=== PATIENT | male | born 1980 | race Caucasian/White ===

== ENCOUNTER 2020-09-17 11:28 | Emergency (ER) | payer OTHER ==
[~2020-09-17 11:28] MED LIST: AMLODIPINE BESYL5 MG PO; BASAGLAR K100 UNIT/1 SC; CATAPRES 0.1MG0.1 MG PO; FLORANEX GRANU1 EACH PO; GLIPIZIDE5 MG PO; GLUCOPHAGE850 MG PO; HUMALOG 10100 UNITS/ SC; INVANZ 1 GM VIAL1 GM IV; INVANZ1 GM IV; KEPPRA1000 MG PO; LANTUS INS100 UTS/M1 SQ; LEVEMIR100 UNIT/1 SQ; LEVOFLOXACIN500 MG PO; LIPITOR40 MG PO; METOPROLOL TART50 MG PO; NOVOLIN 70100 UNITS/ SC; NOVOLOG 10100 UNITS2 SQ; PROTONIX 40 MG40 M1 PO; SPORANOX100 MG PO
[2020-09-17 12:32] LABS: HEMOGLOBIN 14.3 gm/dl (14.0-17.5); RED BLOOD COUNT 4.76 M/UL (4.20-5.50); WHITE BLOOD COUNT 9.2 K/UL (4.5-11.0)
[2020-09-17] MEDS ORDERED: ZOFRAN ODT 4 MG4 MG PO (16:21)
[2020-09-17] MEDS ORDERED: REGLAN10 MG PO (16:21)
[2020-10-20] MEDS ORDERED: PROTONIX40 MG PO (23:33)
[2020-10-20] MEDS ORDERED: REGLAN PO (23:34)
[2020-10-20] MEDS ORDERED: METOPROLOL (23:34)
[2020-10-20] MEDS ORDERED: GLIPIZIDE (23:35)
== END 2020-09-17 17:20 | disposition home or self-care (01) ==
LOC: ER1 11:28
PROVIDERS: Emergency Medicine
DX: K52.9 Noninfective gastroenteritis and colitis, unspecified (principal); E11.43 Type 2 diabetes mellitus with diabetic autonomic (poly)neuropathy; K31.84 Gastroparesis; N18.9 Chronic kidney disease, unspecified; E11.22 Type 2 diabetes mellitus with diabetic chronic kidney disease; F17.200 Nicotine dependence, unspecified, uncomplicated; Z90.89 Acquired absence of other organs; Z20.822 Contact with and (suspected) exposure to COVID-19
CPT/HCPCS: 0240U; 71045; 80053; 81001; 83605; 83690; 85025; 93005; 96374; 96375; 99284; J0360; J2405; J2765

== ENCOUNTER 2020-10-10 09:31 | Emergency (ER) | payer OTHER ==
[~2020-10-10 09:31] MED LIST changes: +REGLAN10 MG PO; +ZOFRAN ODT 4 MG4 MG PO
[2020-10-20] MEDS ORDERED: PROTONIX40 MG PO (23:33)
[2020-10-20] MEDS ORDERED: REGLAN PO (23:34)
[2020-10-20] MEDS ORDERED: GLIPIZIDE (23:35)
== END 2020-10-10 12:40 | disposition home or self-care (01) ==
LOC: ER1 09:31
DX: T81.31XA Disruption of external operation (surgical) wound, not elsewhere classified, initial encounter (principal); I12.9 Hypertensive chronic kidney disease with stage 1 through stage 4 chronic kidney disease, or unspecified chronic kidney disease; E11.22 Type 2 diabetes mellitus with diabetic chronic kidney disease; N18.9 Chronic kidney disease, unspecified; F17.200 Nicotine dependence, unspecified, uncomplicated; Z90.89 Acquired absence of other organs
CPT/HCPCS: 99283

== ENCOUNTER 2020-10-20 23:56 | Inpatient (IN) | payer OTHER ==
[~2020-10-20] VITALS: Ht 195.6 cm; Wt 94.1 kg
[~2020-10-20 23:56] MED LIST changes: +GLIPIZIDE; +PROTONIX40 MG PO; +REGLAN PO
[2020-10-21 05:22] LABS: RED BLOOD COUNT 4.8 M/UL (4.20-5.50); WHITE BLOOD COUNT 17.1 K/UL (4.5-11.0)
[2020-10-21] MEDS ORDERED: AMLODIPINE BESY10 MG PO (10:41)
[2020-10-22 05:55] LABS: HEMOGLOBIN 14.1 gm/dl (14.0-17.5); RED BLOOD COUNT 4.84 M/UL (4.20-5.50)
[2020-10-22 05:57] LABS: WHITE BLOOD COUNT 11.2 K/UL (4.5-11.0)
[2020-10-22 09:14] LABS: HBSAG SCREEN Negative (Negative); HEP A AB, IGM Negative (Negative); HEP B CORE AB, IGM Negative (Negative); HEP C VIRUS AB <0.1 (0.0-0.9)
[2020-10-22 11:14] LABS: CREATININE, URINE 66.9 mg/dL (Not Estab.)
[2020-10-23 02:42] LABS: RED BLOOD COUNT 4.06 M/UL (4.20-5.50)
[2020-10-23 08:13] LABS: COMPLEMENT C3, SERUM 102 mg/dL (82-167); COMPLEMENT C4, SERUM 26 mg/dL (12-38)
[2020-10-24 08:09] LABS: ANTI-DSDNA ANTIBODIES <1 IU/mL (0-9)
[2020-10-25 16:11] LABS: A/G RATIO 1.1 (0.7-1.7); ALBUMIN 2.9 g/dL (2.9-4.4); ALPHA-1-GLOBULIN 0.2 g/dL (0.0-0.4); ANTIMYELOPEROXIDASE (MPO) ABS <9.0 U/mL (0.0-9.0); ANTIPROTEINASE 3 (PR-3) ABS 5.1 U/mL (0.0-3.5); ATYPICAL PANCA <1:20 titer (Neg:<1:20); BETA GLOBULIN 0.8 g/dL (0.7-1.3); CYTOPLASMIC (C-ANCA) <1:20 titer (Neg:<1:20); GAMMA GLOBULIN 0.8 g/dL (0.4-1.8); GLOBULIN, TOTAL 2.8 g/dL (2.2-3.9); IMMUNOGLOBULIN A, QN, SERUM 228 mg/dL (90-386); IMMUNOGLOBULIN G, QN, SERUM 820 mg/dL (603-1613); IMMUNOGLOBULIN M, QN, SERUM 42 mg/dL (20-172); M-SPIKE Not Observed g/dL (Not Observed); PERINUCLEAR (P-ANCA) <1:20 titer (Neg:<1:20); PROTEIN, TOTAL, SERUM 5.7 g/dL (6.0-8.5)
[2020-10-26] MEDS ORDERED: CALCIUM500 M1 PO (13:57)
--- NOTE | 2020-10-26 16:56 | NUR ---
5316: RN SPOKE WITH DR DAHL PER PATIENT REQUEST TO HAVE STITCHES REMOVED FROM RIGHT CHEST WALL. TO RECEIVED TO PROCEED WITH SUTURE REMOVAL. RN REMOVED X 3 SUTURES FROM CHEST WALL SITE WITH OUT DIFFICULTY, PATIENT TOLERATED WELL. SITE WELL APPROXIMATED WITH NATURAL HEALING PROCESS NOTED, NO REDNESS OR DRAINAGE FROM SITE NOTE.
[2020-10-28 16:14] LABS: ATYPICAL PANCA <1:20 titer (Neg:<1:20); CYTOPLASMIC (C-ANCA) <1:20 titer (Neg:<1:20); PERINUCLEAR (P-ANCA) <1:20 titer (Neg:<1:20)
[2020-10-30 07:36] LABS: HEMOGLOBIN 10.5 gm/dl (14.0-17.5); RED BLOOD COUNT 3.56 M/UL (4.20-5.50)
== END 2020-10-30 12:13 | disposition left against medical advice (07) | DRG 682 ==
LOC: MED SURG 4 23:56 → PROG CARE 23:56 → MED SURG 4 10-23 12:28
PROVIDERS: Internal Medicine; Internal Medicine Nephrology; Surgery; ADMIT Internal Medicine
PROC: 05PYX3Z Removal of Infusion Device from Upper Vein, External Approach (ICD-10-PCS; 2020-10-21)
PROC: 0JPT0WZ Removal of Totally Implantable Vascular Access Device from Trunk Subcutaneous Tissue and Fascia, Open Approach (ICD-10-PCS; principal; 2020-10-21 09:34)
DX: N17.9 Acute kidney failure, unspecified (principal); I50.21 Acute systolic (congestive) heart failure; E87.1 Hypo-osmolality and hyponatremia; I13.0 Hypertensive heart and chronic kidney disease with heart failure and stage 1 through stage 4 chronic kidney disease, or unspecified chronic kidney disease; Z20.822 Contact with and (suspected) exposure to COVID-19; E86.0 Dehydration; E55.9 Vitamin D deficiency, unspecified; D63.1 Anemia in chronic kidney disease; N18.4 Chronic kidney disease, stage 4 (severe); F17.210 Nicotine dependence, cigarettes, uncomplicated; E83.51 Hypocalcemia; E11.22 Type 2 diabetes mellitus with diabetic chronic kidney disease; R11.2 Nausea with vomiting, unspecified; Z90.49 Acquired absence of other specified parts of digestive tract; Z83.3 Family history of diabetes mellitus; Z88.0 Allergy status to penicillin
CPT/HCPCS: 36415; 71045; 80048; 80053; 80074; 80202; 81001; 82043; 82310; 82570; 82784; 82962; 83520; 83735; 83970; 84100; 84132; 84155; 84156; 84165; 85025; 85027; 86038; 86160; 86225; 86256; 86334; 87040; 89050; J0360; J0610; J1940; J2270; J2405; J3370; J3475; J3480; J7030; J7070; P9047

== ENCOUNTER 2020-11-22 17:45 | Inpatient (IN) | payer OTHER ==
[~2020-11-22] VITALS: Ht 195.6 cm; Wt 79.4 kg
[~2020-11-22 17:45] MED LIST changes: +AMLODIPINE BESY10 MG PO; +CALCIUM500 M1 PO
[2020-11-22 19:52] LABS: HEMOGLOBIN 14.8 gm/dl (14.0-17.5); RED BLOOD COUNT 5.03 M/UL (4.20-5.50); WHITE BLOOD COUNT 13.2 K/UL (4.5-11.0)
[2020-11-23 09:32] LABS: RED BLOOD COUNT 4.74 M/UL (4.20-5.50); WHITE BLOOD COUNT 13.1 K/UL (4.5-11.0)
[2020-11-23] MEDS ORDERED: CALCIUM CARBONATE PO (10:43)
[2020-11-23] MEDS ORDERED: NICOTINE PATCH1 EAC5 TOP (10:52)
[2020-11-23] MEDS ORDERED: LEXAPRO5 MG PO (10:52)
[2020-11-23] MEDS ORDERED: [UNRECOGNIZED DRUG - CODE] SC (10:54)
[2020-11-23] MEDS ORDERED: [UNRECOGNIZED DRUG - OTHER] PO (10:57)
[2020-11-23] MEDS ORDERED: METOPROLOL TART50 MG PO (23:34)
[2020-11-24 05:37] LABS: HEMOGLOBIN 12.1 gm/dl (14.0-17.5)
[2020-11-24 05:38] LABS: RED BLOOD COUNT 4.21 M/UL (4.20-5.50); WHITE BLOOD COUNT 9.6 K/UL (4.5-11.0)
[2020-11-24 11:14] LABS: HBSAG SCREEN Negative (Negative); HEP A AB, IGM Negative (Negative); HEP B CORE AB, IGM Negative (Negative); HEP C VIRUS AB <0.1 (0.0-0.9)
--- NOTE | 2020-11-24 19:07 | NUR ---
SPOKE WITH DR MATA REGARDING WHICH GENERAL SURGEON FOR PROCEDURE. INFORMED THAT PATIENT REFUSED DIALYSIS, HOWEVER WHEN PROVIDER CAME TO [facility] THE PATIENT STATES THAT THE DOES NOT WANT TO HAVE PORT PLACED. AWAITING ON WHICH SURGEON TO CONTACT FOR NOTIFICATION OF PROCEDURE.
--- NOTE | 2020-11-25 06:14 | NUR ---
11/24/201999 patient complaints of anxiety due to his upcoming procedure in the am. dr yost notified of patient complains order xanax for patient
[2020-11-25 06:46] LABS: HEMOGLOBIN 11.8 gm/dl (14.0-17.5); RED BLOOD COUNT 4.06 M/UL (4.20-5.50); WHITE BLOOD COUNT 10.3 K/UL (4.5-11.0)
[2020-11-26 05:41] LABS: HEMOGLOBIN 10.8 gm/dl (14.0-17.5); RED BLOOD COUNT 3.79 M/UL (4.20-5.50); WHITE BLOOD COUNT 11.2 K/UL (4.5-11.0)
[2020-11-26] MEDS ORDERED: AMLODIPINE BESYL5 MG PO (10:44)
[2020-11-27 07:12] LABS: VITAMIN D, 25-HYDROXY 5.7 ng/mL (30.0-100.0)
== END 2020-11-26 14:39 | disposition home or self-care (01) | DRG 682 ==
LOC: ER1 17:45 → CDU 11-23 00:39 → M/S 11-23 21:10
PROVIDERS: Internal Medicine; Internal Medicine Nephrology; Physician Assistant Medical; ADMIT Internal Medicine
PROC: 8E0ZXY6 Isolation (ICD-10-PCS; principal; 2020-11-23)
DX: N17.9 Acute kidney failure, unspecified (principal); U07.1 COVID-19; I12.0 Hypertensive chronic kidney disease with stage 5 chronic kidney disease or end stage renal disease; E87.3 Alkalosis; B40.9 Blastomycosis, unspecified; N18.6 End stage renal disease; Z99.2 Dependence on renal dialysis; E11.22 Type 2 diabetes mellitus with diabetic chronic kidney disease; E87.5 Hyperkalemia; E83.51 Hypocalcemia; E11.51 Type 2 diabetes mellitus with diabetic peripheral angiopathy without gangrene; G40.909 Epilepsy, unspecified, not intractable, without status epilepticus; E11.65 Type 2 diabetes mellitus with hyperglycemia; Z90.89 Acquired absence of other organs; Z91.14 Patient's other noncompliance with medication regimen; Z98.890 Other specified postprocedural states; Z79.4 Long term (current) use of insulin; Z82.0 Family history of epilepsy and other diseases of the nervous system; Z88.0 Allergy status to penicillin; Z87.891 Personal history of nicotine dependence
CPT/HCPCS: 36415; 71045; 80048; 80053; 80074; 82652; 82728; 82962; 83690; 83970; 84100; 85025; 85610; 86140; 99285; J1644; J7030; U0002